=== PATIENT | female | born 1960 | race Two or more races ===

== ENCOUNTER 2020-09-14 05:22 | Day surgery (SDC) | payer OTHER ==
[~2020-09-14 05:22] MED LIST: ASPIRIN PO
== END 2020-09-14 16:20 | disposition home or self-care (01) ==
LOC: CIR.AMB 05:22
PROVIDERS: ATTEND Otolaryngology Otology & Neurotology
DX: H72.2X1 Other marginal perforations of tympanic membrane, right ear (principal); H72.01 Central perforation of tympanic membrane, right ear; Z20.822 Contact with and (suspected) exposure to COVID-19